=== PATIENT | female | born 1970 | race Caucasian/White ===

== ENCOUNTER 2021-07-13 12:13 | Emergency (ER) | payer BC ==
[~2021-07-13] VITALS: Ht 180.3 cm; Wt 136.1 kg
[2021-07-13 12:13] VITALS: BP_SYST 108
--- NOTE | 2021-07-13 12:13 | NUR ---
BROUGHT IN BY [facility], PLACED IN BED #5 AND TRIAGED. REPORT GIVEN TO JACK
--- NOTE | 2021-07-13 12:15 | NUR ---
Pt brought by ambulance/BLS, A&Ox4, pt presents to ER with abrasion/pain on L knee and R shoulder after trip and fall at [employer], denies KO, skin pink and warm, cap refill <3, no bleeding noted, will cont to monitor.
--- NOTE | 2021-07-13 12:30 | NUR ---
Dr Kapoor evaluating patient in the [facility]
--- NOTE | 2021-07-13 12:38 | NUR ---
assumed care of pt. in bed, awaitting to see Dr. Cisneros, was bib ambulance post a fall at [facility] where she tripped, no LOC, c/o pain to right shoulder, has abrasion to right elbow, and pain to left knee with mild swelling, ice pack to knee, rates pain 4/10
[2021-07-13 16:12] VITALS: BP_SYST 108
--- NOTE | 2021-07-13 16:13 | NUR ---
Patient given written and verbal discharge instructions and verbalizes understanding. ER MD discussed with patient the results and treatment provided. Patient in stable condition. ID arm band removed. No Rx given. Patient educated on pain management and to follow up with PMD. Pain Scale 2/10. Opportunity for questions provided and answered. Medication side effect fact sheet provided.
== END 2021-07-13 16:12 | disposition home or self-care (01) ==
LOC: SED 12:13
DX: S40.011A Contusion of right shoulder, initial encounter (principal); S89.92XA Unspecified injury of left lower leg, initial encounter; E11.9 Type 2 diabetes mellitus without complications; J45.909 Unspecified asthma, uncomplicated; W01.198A Fall on same level from slipping, tripping and stumbling with subsequent striking against other object, initial encounter; Y93.89 Activity, other specified; Y92.89 Other specified places as the place of occurrence of the external cause; Y99.8 Other external cause status
CPT/HCPCS: 73030; 73564; 99284